=== PATIENT | female | born 1985 | race African-American/Black ===

== ENCOUNTER 2017-04-26 12:13 | Emergency (ER) | payer SELFPAY ==
[~2017-04-26] VITALS: Ht 165.1 cm; Wt 98.9 kg
[~2017-04-26 12:13] MED LIST: CYCLOBENZAPRINE10 MG ORAL; NKM; TYLENOL EXTRA500 MG ORAL
[2017-04-26 12:28] VITALS: BP 126/71
--- NOTE | 2017-04-26 12:29 | Emergency Room Report ---
History of Present Illness General Chief Complaint: Back Pain-No Injury Source: Patient Present Illness HPI 31 yo female patient presents to ER complaining of left sided low back pain x1 week, Reports pain as sharp. Denies hx of injury. Reports exercising more frequently recently and receiving a massage recently; reports worsening of symptoms since that time. Denies surgery or drug use. Denies bowel or bladder symptoms. Denies IVDA or cancer. Denies chest pain, SOB, abdominal pain, fever. Allergies: Coded Allergies: ASPIRIN (Verified Allergy, Unknown, 07/14/15) IBUPROFEN (Verified Allergy, Unknown, 07/14/15) PENICILLINS (Verified Allergy, Unknown, 07/14/15) Patient History Past Medical History: see triage record Last Menstrual Period: 04/19/17 Now: No Reviewed Nursing Documentation: PMH: Agreed, PSxH: Agreed Nursing Documentation-PMH Past Medical History: No History, Except For Hx Hypertension: Yes Review of Systems All Other Systems: negative except mentioned in HPI Physical Exam Vital Signs Date Time Temp Pulse Resp B/P (MAP) Pulse Ox O2 Delivery O2 Flow Rate FiO2 04/26/17 12:21 98.4 76 18 126/71 98 Room Air 98.4 Sp02 EP Interpretation: reviewed, normal General Appearance: well appearing, no apparent distress, alert, GCS 15 Head: normocephalic, atraumatic Eyes: bilateral eye normal inspection, bilateral eye PERRL ENT: hearing grossly normal, normal pharynx, no angioedema, normal voice, uvula midline, moist mucus membranes Neck: full range of motion Respiratory: lungs clear, normal breath sounds, no rhonchi, no respiratory distress, no accessory muscle use, no wheezing, speaking full sentences Cardiovascular #1: regular rate, rhythm, no edema Gastrointestinal: non tender, soft, no mass, non-distended, no guarding, no rebound Genitourinary: no CVA tenderness Musculoskeletal: back normal, digits/nails normal, gait/station normal, normal range of motion, non-tender, no calf tenderness, pelvis stable Neurologic: alert, oriented x3, responsive, motor strength/tone normal, sensory intact Psychiatric: mood/affect normal Skin: no rash Lymphatic: no adenopathy Medical Decision Making PA Attestation Dr. Larson is my supervising Physician whom patient management has been discussed with. Diagnostic Impression: Primary Impression: Back pain ER Course Pt presents to ED c/o left low back pain. DDX considered but are not limited to sprain, strain, cauda equine, epidural abscess, UTI. Low suspicion for cauda equina, no bowel or bladder incontinence or retention. No fever, nontoxic appearing, low suspicion for epidural mass. VITAL SIGNS are WNL, patient is afebrile. PE shows no step off, no TTP, low suspicion for fracture. Does not require imaging at this time. Ordered pain medication, UA and urine . ER COURSE: Patient provided with Robaxin, Lidocaine patch and Tylenol. Patient resting comfortably, in no acute distress, listening to headphones, sleeping. UA results unremarkable, will not treat with abx at this time. Urine negative. Discuss results with patient. Explained to patient symptoms likely musculoskeletal in nature, like muscle pain from overuse in gym. Rest and do not work out, allow body to recover, will provide with medication for pain relief. F/u with ortho for further treatment and imaging at required at that time. Patient reports feeling better following administration of medication. DISCHARGE: -Rx provided for Tylenol -Rx provided for Lidocaine patch -Rx provided for Robaxin. Do not take while drinking, driving, or operating heavy machinery. At this time pt. is stable for d/c to home. At this time patient is resting comfortably, in no acute distress, nontoxic appearing, talking without difficulty. Will provide printed patient care instructions, and any necessary prescriptions. Patient instructed to follow with primary care provider for further treatment and referral as needed. Care plan and follow up instructions have been discussed with the patient prior to discharge. Patient reports understanding and agreement to treatment plan. Patient questions asked and answered. ER precautions given, patient instructed to return to ER immediately for any new or worsening of symptoms. Labs Test 04/26/17 12:45 Urine Color Pale yellow Urine Appearance Clear Urine pH 7 (4.5-8.0) Urine Specific [place] 1.005 (1.005-1.035) Urine Protein Negative (NEGATIVE) Urine Glucose (UA) Negative (NEGATIVE) Urine Ketones Negative (NEGATIVE) Urine Occult Blood Negative (NEGATIVE) Urine Nitrite Negative (NEGATIVE) Urine Bilirubin Negative (NEGATIVE) Urine Urobilinogen Normal MG/DL (0.0-1.0) Urine Leukocyte Esterase 1+ (NEGATIVE) Urine RBC 0-2 /HPF (0 - 2) Urine WBC 0-2 /HPF (0 - 2) Urine Squamous Epithelial Cells Few /LPF (NONE/OCC) Urine Bacteria Occasional /HPF (NONE) Urine HCG, Qualitative Negative (NEGATIVE) Last Vital Signs Date Time Temp Pulse Resp B/P (MAP) Pulse Ox O2 Delivery O2 Flow Rate FiO2 04/26/17 12:21 98.4 76 18 126/71 98 Room Air 98.4 Disposition: HOME, SELF-CARE Condition: Stable Scripts Lidocaine (Lidocaine) 1 Each Adh..patch 700 MG TP DAILY for 5 Days, #5 PATCH Prov: Maurice Carbone 04/26/17 Methocarbamol* (ROBAXIN*) 500 Mg Tablet 500 MG PO TID, #21 TAB 0 Refills Prov: Maurice Carbone 04/26/17 Acetaminophen* (TYLENOL EXTRA STRENGTH*) 500 Mg Tablet 500 MG ORAL Q8H Y for Prn Headache/Temp > 101, #30 TAB 0 Refills Prov: Maurice Carbone 04/26/17 Patient Instructions: Back Pain, Adult Additional Instructions: Patient instructed to follow up with primary care provider and discuss further referral to orthopedics for further imaging. Patient instructed on RICE method: rest, ice, compression, elevation. Patient instructed to WBAT. Avoid strenuous exercise. Take medications as directed. Patient questions asked and answered. ER precautions given, patient instructed to return to ER immediately for any new or worsening of symptoms. Maurice Carbone Apr 26, 2017 12:29
[2017-04-26] MEDS: Methocarbamol 750mg tab ORAL ONE (12:48)
[2017-04-26 13:22] LABS: APPEARANCE,URINE CLEAR; BILIRUBIN, URINE NEGATIVE (NEGATIVE); COLOR,URINE PALE YELLOW; GLUCOSE, URINE (UA) NEGATIVE (NEGATIVE); KETONES,URINE NEGATIVE (NEGATIVE); LEUKOCYTE ESTERASE ,URINE 1+ (NEGATIVE); NITRITE,URINE NEGATIVE (NEGATIVE); PH,URINE 7 (4.5-8.0); PROTEIN,URINE NEGATIVE (NEGATIVE); UROBILINOGEN,URINE NORMAL MG/DL (0.0-1.0)
[2017-04-26] MEDS ORDERED: LIDOCAINE700 M1 TP (13:27)
[2017-04-26] MEDS ORDERED: TYLENOL EXTRA500 MG ORAL (13:27)
[2017-04-26] MEDS ORDERED: ROBAXIN500 MG PO (13:27)
[2017-04-26 14:15] VITALS: BP 131/80
== END 2017-04-26 14:15 | disposition home or self-care (01) ==
LOC: EMR 12:53
DX: M54.5 Low back pain (principal); I10 Essential (primary) hypertension; Z88.6 Allergy status to analgesic agent; Z88.0 Allergy status to penicillin
CPT/HCPCS: 81003; 81025; 99284

== ENCOUNTER 2018-02-27 12:38 | Emergency (ER) | payer OTHER ==
[~2018-02-27] VITALS: Ht 165.1 cm; Wt 87.1 kg
[~2018-02-27 12:38] MED LIST changes: +LIDOCAINE700 M1 TP; +ROBAXIN500 MG PO
--- NOTE | 2018-02-27 12:51 | NUR ---
ED Nurse Note: Pt came in from home due to flu-like symptoms: coughing, fever, bodyache, LYLES x 3 days, no fever upon arrival, temp 98.5F oral. LYLES 09/21 amandeep. Will cont to monitor.
[2018-02-27] MEDS ORDERED: Albuterol ud Inhalation HHN ONE (13:15)
[2018-02-27 13:24] VITALS: BP 124/84
--- NOTE | 2018-02-27 13:27 | Emergency Room Report ---
History of Present Illness General Chief Complaint: Flu Like Symptoms Source: Medical Record Present Illness HPI 32-year-old female presents to the emergency department complaining of 8 out of 10 in severity body aches with painful cough, fevers, chills, sore throat and nasal congestion 3 days. Patient reports history of asthma and states that she does not have access to her her inhaler anymore. Patient reports she is up- to-date with all vaccinations she reports some ill contacts she denies recent travel and states she has not taken any medication today. Patient denies history of immunocompromise. Denies aggravating or relieving factors. Allergies: Coded Allergies: ASPIRIN (Verified Allergy, Unknown, 07/14/15) IBUPROFEN (Verified Allergy, Unknown, 07/14/15) PENICILLINS (Verified Allergy, Unknown, 07/14/15) Patient History Past Medical History: see triage record Past Surgical History: none Pertinent Family History: none Last Menstrual Period: 02/04/18 Reviewed Nursing Documentation: PMH: Agreed; PSxH: Agreed Nursing Documentation-PMH Past Medical History: No History, Except For Hx Hypertension: Yes Review of Systems All Other Systems: negative except mentioned in HPI Physical Exam Vital Signs Date Time Temp Pulse Resp B/P (MAP) Pulse Ox O2 Delivery O2 Flow Rate FiO2 02/27/18 12:40 98.4 97 18 122/80 98 Room Air Sp02 EP Interpretation: reviewed, normal General Appearance: no apparent distress, alert, GCS 15, non-toxic Head: normocephalic, atraumatic Eyes: bilateral eye normal inspection, bilateral eye PERRL ENT: hearing grossly normal, normal voice, TMs + canals normal, uvula midline, moist mucus membranes, nasal congestion, pharyngeal erythema Neck: full range of motion, no meningismus Respiratory: lungs clear, normal breath sounds, speaking full sentences Cardiovascular #1: regular rate, rhythm Musculoskeletal: back normal, gait/station normal, normal range of motion, non- tender Neurologic: alert, oriented x3, responsive, motor strength/tone normal, sensory intact, speech normal, grossly normal Psychiatric: judgement/insight normal Skin: normal color, no rash, warm/dry, well hydrated Lymphatic: no adenopathy Medical Decision Making PA Attestation Dr. saavedra is my supervising Physician whom patient management has been discussed with. Diagnostic Impression: Primary Impression: Acute bronchitis Qualified Codes: J20.9 - Acute bronchitis, unspecified ER Course 32-year-old female presents to the emergency department complaining of 8 out of 10 in severity body aches with painful cough, fevers, chills, sore throat and nasal congestion 3 days. Patient reports history of asthma and states that she does not have access to her her inhaler anymore. Patient reports she is up- to-date with all vaccinations she reports some ill contacts she denies recent travel and states she has not taken any medication today. Patient denies history of immunocompromise. Denies aggravating or relieving factors Ddx considered but are not limited to URI, pneumonia, PE, strep pharyngitis, meningitis. Vital signs: Pt. is afebrile, the remaining VS are WNL H&PE are most consistent with URI- no meningeal signs, oropharynx is not involved, no evidence of bacterial infection at this time. ORDERS: none required at this time, the diagnosis is clinical ED INTERVENTIONS: -Albuterol Nebulizer. --PT. EDUCATION: Discussed antibiotic resistance with inappropriate prescribing of antibiotics for viral illnesses. Discussed signs and symptoms to indicate viral illness versus bacterial illness. DISCHARGE: At this time pt. is stable for d/c to home. Will provide printed patient care instructions, and any necessary prescriptions. Care plan and follow up instructions have been discussed with the patient prior to discharge. Chest X-Ray Diagnostic Results Chest X-Ray Diagnostic Results : Chest X-Ray Ordered: Yes # of Views/Limited/Complete: 1 View Indication: Shortness of Breath EP Interpretation: Yes ALEJANDRA Xray: Interpretation reviewed, by supervising MD, and agrees with findings. Interpretation: no consolidation, no effusion, no pneumothorax, no acute cardiopulmonary disease Impression: No acute disease Electronically Signed by: Anca Shah PA-C Last Vital Signs Date Time Temp Pulse Resp B/P (MAP) Pulse Ox O2 Delivery O2 Flow Rate FiO2 02/27/18 12:52 97 18 Room Air 02/27/18 12:40 98.4 122/80 98 Disposition: HOME, SELF-CARE Condition: Stable Scripts Acetaminophen* (TYLENOL EXTRA STRENGTH*) 500 Mg Tablet 500 MG ORAL Q6H PRN for Mild Pain/Temp > 100.5, #20 TAB 0 Refills Prov: Anca Shah 02/27/18 Codeine/Promethazine Hcl* (PROMETHAZINE-CODEINE SYRUP*) 118 Ml Syrup 5 ML ORAL Q6H PRN for For Cough, #120 ML 0 Refills Prov: Anca Shah 02/27/18 Prednisone* (PREDNISONE*) 20 Mg Tablet 40 MG ORAL DAILY for 5 Days, #10 TAB Prov: Anca Shah 02/27/18 Albuterol Sulfate* (ALBUTEROL SULFATE MDI*) 8.5 Gm Hfa.aer.ad 2 PUFF INH Q3H, #1 INH 0 Refills Prov: Anca Shah 02/27/18 Referrals: NON PHYSICIAN (PCP) Departure Forms: Return to Work Return to Work in (Days): 3 Return to Work Date: Mar 03, 2018 Work Restrictions: None Other Restrictions: May return Sooner if Symptoms have resolved. Patient Instructions: Acute Bronchitis, [id number] Additional Instructions: Take medications as directed. Follow up with a Primary Care Provider in 3-5 days, even if your symptoms have resolved. --Please review list of primary care clinics, if you do not already have a primary care provider Return sooner to ED if new symptoms occur, or current symptoms become worse. Do not drink alcohol, drive, or operate heavy machinery while taking Cough Syrup as this may cause drowsiness. - Please note that this Emergency Department Report was dictated using [employer] farm helper technology software, occasionally this can lead to erroneous entry secondary to interpretation by the dictation equipment. Anca Shah Feb 27, 2018 13:27
--- NOTE | 2018-02-27 13:35 | NUR ---
ED Nurse Note: XRAY AT BEDSIDE.
--- NOTE | 2018-02-27 13:36 | NUR ---
ED Nurse Note: RT AT BEDSIDE.
[2018-02-27] MEDS ORDERED: PREDNISONE20 MG ORAL (14:18)
[2018-02-27] MEDS ORDERED: ALBUTEROL SULF8.5 GM INH (14:18)
[2018-02-27] MEDS ORDERED: PROMETHAZINE-C118 M1 ORAL (14:18)
[2018-02-27] MEDS ORDERED: TYLENOL EXTRA500 MG ORAL (14:18)
[2018-02-27 14:25] VITALS: BP 122/80
--- NOTE | 2018-02-27 14:28 | NUR ---
ED Nurse Note: PT LAYING PEACEFULLY IN BED IN NAD. AOX4. PRESCRIPTIONS AND DISCHARGE PAPERWORK EXPLAINED TO PT. PT VERBALIZES UNDERSTANDING AND DENIES ANY QUESTIONS AT THIS TIME. PRESCRIPTION AND DISCHARGE PAPERWORK GIVEN TO PT AND ID WRISTBAND REMOVED. PT WALKED OUT OF ER WITH STEADY GAIT AND ALL BELONGINGS.
--- NOTE | 2018-02-27 15:20 | Diagnostic Imaging Report ---
Indication: Chest pain Comparison: None A single view chest radiograph was obtained. Findings: Cardiomediastinal appearance is within normal limits for age. The lungs are clear. Pulmonary vascularity is appropriate. The diaphragmatic contour is smooth and costophrenic angles are sharp. No pleural effusions are identified. The bones are unremarkable. Impression: No acute findings
== END 2018-02-27 14:28 | disposition home or self-care (01) ==
LOC: EMR 12:48
DX: J20.9 Acute bronchitis, unspecified (principal); I10 Essential (primary) hypertension; Z88.0 Allergy status to penicillin; Z88.6 Allergy status to analgesic agent
CPT/HCPCS: 71045; 94640; 99284